=== PATIENT | male | born 1960 | race African-American/Black ===

== ENCOUNTER 2016-12-25 07:41 | Emergency (ER) | payer OTHER ==
[~2016-12-25] VITALS: Ht 180.3 cm; Wt 99.4 kg
[~2016-12-25 07:41] MED LIST: AMOXICILLIN500 MG PO; CETIRIZINE HCL5 MG PO; CHANTIX1 EACH PO; FLONASE16 G1 BOTH NARES; FLONASE16 GM NS; SIMVASTATIN5 MG PO
[2016-12-25 08:16] LABS: HEMATOCRIT 44.1 % (38.0-50.0); MCHC 31.1 G/DL (30.0-36.0); MCV 80.5 FL (86-99); PLATELET COUNT 282 K/uL (156-360); RBC DIS.WIDTH-CV 13.2 % (11.8-14.6); RBC DIS.WIDTH-SD 38.3 % (39-53); RED BLOOD COUNT 5.48 M/uL (4.00-5.50); WHITE BLOOD COUNT 7.8 K/uL (4.1-10.2)
[2016-12-25 08:27] LABS: CHLORIDE 106 mEq/L (99-109); POTASSIUM 3.5 mEq/L (3.7-5.4); SODIUM 141 mEq/L (136-147)
[2016-12-25 08:29] LABS: GLUCOSE 101 mg/dL (70-99)
[2016-12-25 08:30] LABS: ANION GAP 9 MEQ/L (2-14)
[2016-12-25 08:33] LABS: GFR ESTIMATE (CALCULATED) > 59 mL/min/; UREA NITROGEN (BUN) 15 mg/dL (9-23)
[2016-12-25 09:07] LABS: ADD MIUA? NO; BILIRUBIN MODERATE; BLOOD NEGATIVE; COLOR YELLOW ((YELLOW)); GLUCOSE (STRIP) NEGATIVE; KETONES NEGATIVE; LEUKOCYTES NEGATIVE; NITRITE NEGATIVE; PROTEIN (STRIP) NEGATIVE; SPECIFIC GRAVITY 1.023 (1.000-1.030)
[2016-12-25 09:34] LABS: ICTOTEST POSITIVE
[2016-12-25] MEDS ORDERED: FLEXERIL10 MG PO (09:49)
[2016-12-25 10:00] VITALS: BP 129/85
[2016-12-26] MEDS ORDERED: PERCOCET 2.51 TABLET PO (02:00)
== END 2016-12-25 10:01 | disposition home or self-care (01) ==
LOC: EME 07:41
PROVIDERS: Nurse Practitioner Family
DX: N20.0 Calculus of kidney (principal); J45.909 Unspecified asthma, uncomplicated; I10 Essential (primary) hypertension; E78.5 Hyperlipidemia, unspecified; Z87.442 Personal history of urinary calculi; Z87.891 Personal history of nicotine dependence
CPT/HCPCS: 74176; 80048; 81003; 85027; 99281; 99283; J1885

== ENCOUNTER 2016-12-26 01:36 | Emergency (ER) | payer OTHER ==
[~2016-12-26] VITALS: Ht 180.3 cm; Wt 99.1 kg
[~2016-12-26 01:36] MED LIST changes: +FLEXERIL10 MG PO
[2016-12-26] MEDS ORDERED: PERCOCET 2.51 TABLET PO (02:00)
[2016-12-26 02:32] VITALS: BP 00/00
== END 2016-12-26 02:33 | disposition home or self-care (01) ==
LOC: EME 01:36
DX: N20.0 Calculus of kidney (principal); E78.5 Hyperlipidemia, unspecified; Z87.442 Personal history of urinary calculi; Z87.891 Personal history of nicotine dependence
CPT/HCPCS: 99281; 99284; J1885; J2270